=== PATIENT | female | born 1990 | race Caucasian/White ===

== ENCOUNTER 2016-10-28 12:55 | Emergency (ER) | payer OTHER ==
[2016-10-28 13:04] VITALS: BP 113/74; PULSE 86; TEMP 99; BMI 25.2
[2016-10-28] MEDS ORDERED: ALBUTEROL SO4 0.083% IH SOL 2.5 MG/3 ML VIAL.NEB. NEB ONE ×3 (14:37→15:36)
[2016-10-28] MEDS ORDERED: predniSONE 20 MG TABLET (UD) PO ONE (15:35)
[2016-10-28] MEDS ORDERED: predniSONE 20 MG TABLET (UD) ONE (15:36)
[2016-10-28] MEDS ORDERED: DEXAMETHASONE SOD PHOSPHATE 10 MG/1 ML VIAL ONE (15:43)
--- NOTE | 2016-10-28 15:59 | PDOC ---
History of Present Illness - General Chief Complaint: Cold Symptoms Stated Complaint: COUGH, FEVER Time Seen by Provider: 10/28/16 14:23 History Source: Patient Exam Limitations: No Limitations - History of Present Illness Initial Comments: 10/28/16 15:55 CC coughing x 6 weeks; finished z aamir; with wheezing now Timing/Duration: reports: just prior to arrival Severity: reports: mild Possible Cause: No: illness exposure Modifying Factors: worse with: albuterol inhaler Associated Symptoms: reports: cough, wheezing. denies: fever/chills, shortness of breath, sore throat Past History - Past Medical History Allergies/Adverse Reactions: Allergies Allergy/AdvReac Type Severity Reaction Status Date / Time No Known Drug Allergies Allergy Verified 10/28/16 13:04 Home Medications: Ambulatory Orders NK [No Known Home Medication] 10/28/16 Other medical history: NONE - Psycho/Social/Smoking Cessation Hx Anxiety: No Suicidal Ideation: No Smoking Status: No Smoking History: Never smoked Number of Cigarettes Smoked Daily: 0 Hx Alcohol Use: Yes (SOCIAL) Drug/Substance Use Hx: No Substance Use Type: None Hx Substance Use Treatment: No Review of Systems - Review of Systems Constitutional: Yes: Malaise. No: Chills, Fever HEENTM: Yes: Nose Pain, Nose Congestion, Throat Swelling Respiratory: Yes: Cough, Wheezing Cardiac (ROS): No: Symptoms Reported ABD/GI: No: Symptoms Reported *Physical Exam - Vital Signs Last Vital Signs Temp Pulse Resp BP Pulse Ox 99.0 F 86 20 113/74 97 10/28/16 13:01 10/28/16 13:01 10/28/16 13:01 10/28/16 13:01 10/28/16 13:01 - Physical Exam General Appearance: Yes: Appropriately Dressed. No: Apparent Distress HEENT: positive: TMs Normal, Pharynx Normal, Nasal Congestion, Rhinorrhea, Sinus Tenderness Neck: positive: Lymphadenopathy (R), Lymphadenopathy (L). negative: Tender, Rigid Respiratory/Chest: positive: Wheezing. negative: Chest Tender Cardiovascular: positive: Regular Rhythm, Regular Rate. negative: Murmur ED Treatment Course - ADDITIONAL ORDERS Additional order review: Laboratory Results 10/28/16 14:36 Urine HCG, Qual Negative - RADIOLOGY Radiology Studies Ordered: Category Date Time Status CHEST PA & LAT [RAD] Stat Radiology 10/28/16 14:37 Completed - Medications Given in the ED: ED Medications Discontinued Medications Generic Name Dose Route Start Last Admin Trade Name Joselyn PRN Reason Stop Dose Admin Albuterol Sulfate 1 amp 10/28/16 14:37 10/28/16 14:43 Ventolin 0.083% Nebulizer Soln - NEB 10/28/16 14:38 1 amp ONCE ONE Administration Prednisone 40 mg 10/28/16 15:35 10/28/16 15:39 Deltasone - PO 10/28/16 15:36 40 mg ONCE ONE Administration Medical Decision Making - Medical Decision Making 10/28/16 15:57 chest xray= negative; feeling much better post prednisone and albuterol x 2; *DC/Admit/Observation/Transfer Diagnosis at time of Disposition: Bronchitis with bronchospasm - Discharge Dispostion Disposition: HOME Condition at time of disposition: Stable Admit: No - Patient Instructions Additional Instructions: albuterol 2 puffs 4 times daily x 3 days; return for increased symptoms - Post Discharge Activity Work/School Note: Back to Work
== END 2016-10-28 16:03 | disposition home or self-care (01) ==
LOC: JERFT 12:55
PROC: 3E0F7GC Introduction of Other Therapeutic Substance into Respiratory Tract, Via Natural or Artificial Opening (ICD-10-PCS; principal; 2016-10-28)
DX: J20.9 Acute bronchitis, unspecified (principal); J98.01 Acute bronchospasm
CPT/HCPCS: 71020-TC; 84703; 99281-25

== ENCOUNTER 2018-07-12 14:19 | Emergency (ER) | payer OTHER ==
[2018-07-12 14:27] VITALS: BP 123/94; PULSE 87; TEMP 98.8; BMI 25.0
--- NOTE | 2018-07-12 14:31 | PDOC ---
Rapid Medical Evaluation Chief Complaint: Headache Time Seen by Provider: 07/12/18 14:26 Medical Evaluation: Allergies Allergy/AdvReac Type Severity Reaction Status Date / Time No Known Drug Allergies Allergy Verified 07/12/18 14:25 Vital Signs Temp Pulse Resp BP Pulse Ox 98.8 F 87 18 123/94 96 07/12/18 14:25 07/12/18 14:25 07/12/18 14:25 07/12/18 14:25 07/12/18 14:25 07/12/18 14:30 The patient presents with a chief complaint of: headache I have performed a brief in-person evaluation of this patient. Pertinent physical exam findings: vss, I have ordered the following: The patient will proceed to the ED for further evaluation.
--- NOTE | 2018-07-12 14:46 | PDOC ---
History of Present Illness - General Chief Complaint: Headache Stated Complaint: MIGRAINE 5 DAYS Time Seen by Provider: 07/12/18 14:26 - History of Present Illness Initial Comments: 28-year-old female without comorbidities presents for evaluation of headache 5 days. She states she normally does not get headaches. She states her headaches are worse in the morning and sometimes positional. They are associated with a pressure in the back of her head wrapping around my command and sensitivity to light. 07/12/18 14:44 Past History - Past Medical History Allergies/Adverse Reactions: Allergies Allergy/AdvReac Type Severity Reaction Status Date / Time No Known Drug Allergies Allergy Verified 07/12/18 14:25 Home Medications: Ambulatory Orders Ibuprofen [Motrin -] 600 mg PO TID #30 tablet 07/12/18 COPD: No - Immunization History Immunization Up to Date: Yes - Suicide/Smoking/Psychosocial Hx Smoking Status: No Smoking History: Never smoked Number of Cigarettes Smoked Daily: 0 Hx Alcohol Use: Yes (SOCIAL) Drug/Substance Use Hx: No Substance Use Type: None Hx Substance Use Treatment: No Review of Systems - Review of Systems Neurological: Yes: See HPI, Headache All Other Systems: Reviewed and Negative *Physical Exam - Vital Signs Last Vital Signs Temp Pulse Resp BP Pulse Ox 98.8 F 87 18 123/94 96 07/12/18 14:25 07/12/18 14:25 07/12/18 14:25 07/12/18 14:25 07/12/18 14:25 - Physical Exam Comments: HEAD: NC/AT EYES: Conjuntiva clear, PERRL, EOMI Ears: Canals and TM's normal NOSE: No d/c THROAT: Moist mucous membrances, oral pharanx clear, uvula midline NECK: Supple without adenopathy CARDIAC: S1 S2 LUNGS: CTA Full and Equal breath sounds ABDOMEN: Soft NT ND MS: Full ROM in all joints without edema NEUROLOGIC: No gross sensory or motor deficits, NVID SKIN: Normal color and temperature no lesions or rashes 07/12/18 14:45 07/12/18 14:45 Medical Decision Making - Medical Decision Making 07/12/18 14:45 New onset morning headaches exacerbated with position pending, I will get CT scan and treat headache after UCG is result 07/12/18 16:26 CAT scan reviewed, medications given. Patient's headache is relieved. Prescription for [facility]y follow-up advised *DC/Admit/Observation/Transfer Diagnosis at time of Disposition: Headache - Discharge Dispostion Disposition: HOME Condition at time of disposition: Stable Decision to Admit order: No - Referrals Referrals: Chi Koroma MD [Staff Physician] - - Patient Instructions Printed Discharge Instructions: DI for Headache Additional Instructions: Return to the emergency room should symptoms worsen or go unresolved. I given you a name and number for neurologist please follow-up in one to 2 days for further evaluation and treatment options. I given you a prescription for Motrin its one tablet 3 times a day when needed please take the medication with food and discontinue it if it bothers her stomach. - Post Discharge Activity
[2018-07-12] MEDS ORDERED: SODIUM CHLORIDE 0.9% 500 ML INFUS.BAG IV ONE (15:24)
[2018-07-12] MEDS ORDERED: KETOROLAC TROMETHAMINE 15 MG/ML VIAL IVPUSH ONE (15:24)
[2018-07-12] MEDS ORDERED: ONDANSETRON *ODT* 4 MG TABLET ONE (15:36)
[2018-07-12] MEDS ORDERED: ONDANSETRON *ODT* 4 MG TABLET SL ONE (15:36)
[2018-07-12] MEDS ORDERED: KETOROLAC TROMETHAMINE 15 MG/ML VIAL ONE (15:39)
[2018-07-12] MEDS ORDERED: METOCLOPRAMIDE HCL INJECTION 10 MG/2 ML VIAL ONE (15:39)
[2018-07-12] MEDS: METOCLOPRAMIDE HCL INJECTION 10 MG/2 ML VIAL IVPUSH ONE ×2 (15:40→15:46)
== END 2018-07-12 16:47 | disposition home or self-care (01) ==
LOC: JERFT 14:19
DX: R51 Headache (principal)
CPT/HCPCS: 70450-TC; 84703; 99281-25; Q0162

== ENCOUNTER 2019-10-23 12:31 | Emergency (ER) | payer OTHER ==
[2019-10-23 12:46] VITALS: BP 124/75; PULSE 83; TEMP 97.9; BMI 23.4
--- NOTE | 2019-10-23 12:48 | PDOC ---
Rapid Medical Evaluation Time Seen by Provider: 10/23/19 12:42 Medical Evaluation: Allergies Allergy/AdvReac Type Severity Reaction Status Date / Time No Known Drug Allergies Allergy Verified 07/12/18 14:25 10/23/19 12:42 I performed a brief in-person evaluation of this patient. Healthy, non-smoker presenting with 4 days of left calf pain/intermittent numbness. Does not use OCP. No recent trauma/travel/surgery. No chest pain or SOB. Reports stretching for the first time in a long time prior to onset of symptoms. Pertinent physical exam findings: RRR, S1/S2. Clear lungs. Very mild tenderness to deep palpation left mid-calf medially. Negative Homans' sign. V/s unremarkable. I have ordered the following: None. Patient to proceed to FT for further evaluation. Discharge Disposition - Diagnosis Pain of left calf - Referrals - Patient Instructions - Post Discharge Activity
--- NOTE | 2019-10-23 13:47 | PDOC ---
History of Present Illness - General Chief Complaint: Pain, Acute Stated Complaint: LT LEG CALVE PAIN Time Seen by Provider: 10/23/19 12:42 - History of Present Illness Initial Comments: 10/23/19 13:43 29-year-old female without comorbidities presents for evaluation of left lower leg numbness x4 days no systemic symptoms Past History - Past Medical History Allergies/Adverse Reactions: Allergies Allergy/AdvReac Type Severity Reaction Status Date / Time No Known Drug Allergies Allergy Verified 10/23/19 12:42 Home Medications: Ambulatory Orders NK [No Known Home Medication] 10/23/19 COPD: No - Immunization History Immunization Up to Date: Yes - Psycho Social/Smoking Cessation Hx Smoking Status: No Smoking History: Never smoked Number of Cigarettes Smoked Daily: 0 Hx Alcohol Use: No Drug/Substance Use Hx: No Substance Use Type: None Hx Substance Use Treatment: No Review of Systems - Review of Systems Neurological: Yes: See HPI, Numbness *Physical Exam - Vital Signs Last Vital Signs Temp Pulse Resp BP Pulse Ox 97.9 F 83 18 124/75 100 10/23/19 12:43 10/23/19 12:43 10/23/19 12:43 10/23/19 12:43 10/23/19 12:43 - Physical Exam 10/23/19 13:44 Left lower extremity skin color and temperature normal. Range of motion is full in the hip knee ankle and toes without discomfort. Thigh and calf are soft and nontender. Calf is floppy. Mild decrease sensation about the medial aspect of the left lower leg negative Tinel sign at the peroneal nerve. 5 out of 5 strength in all planes plantar and dorsi flexion inversion and eversion knee flexion and extension. Lumbar spine skin color and temperature normal range of motion is full and nonpainful no tenderness or spasm 10/23/19 13:45 Medical Decision Making - Medical Decision Making 10/23/19 13:45 No gross deficits on examination in regards to her motor exam. Follow-up with neurology. Discharge - Discharge Information Problems reviewed: Yes Clinical Impression/Diagnosis: Numbness and tingling of left leg Clinical Impression/Diagnosis: (Ruled Out): Pain of left calf Condition: Stable Disposition: HOME - Admission No - Follow up/Referral Referrals: Boni Carmen MD [Primary Care Provider] - Salomon Walsh MD [Staff Physician] - - Patient Discharge Instructions Additional Instructions: Return to the emergency room for any changes or worsening of symptoms. Otherwise follow-up with neurology in 1 to 2 days for further evaluation and treatment options. Follow-up with neurology without fail. - Post Discharge Activity
== END 2019-10-23 14:02 | disposition home or self-care (01) ==
LOC: JERFT 12:31
DX: R20.2 Paresthesia of skin (principal)
CPT/HCPCS: 99282-25

== ENCOUNTER 2023-10-09 09:30 | Emergency (ER) | payer OTHER ==
[2023-10-09 09:50] VITALS: RESP 18; BMI 25.9
[2023-10-09] MEDS ORDERED: FAMOTIDINE 20 MG/50 ML IVPB 20 MG/50 ML MG IVPB ONE ×2 (11:05→11:20)
[2023-10-09] MEDS ORDERED: SODIUM CHLORIDE 0.9% 500 ML INFUS.BAG IV ONE (11:08)
[2023-10-09 11:55] LABS: HCG,QUALITATIVE URINE Positive
[2023-10-09 11:56] LABS: BASO % 0.5 % (0-2.0); EOS % 1.5 % (0-4.5); HEMATOCRIT 38.9 % (32.4-45.2); HEMOGLOBIN 13.1 GM/dL (10.7-15.3); LYMPH % 10.5 % (8-40); MCH 31.1 pg (25.7-33.7); MCHC 33.6 g/dl (32.0-36.0); MEAN CELL VOLUME 92.5 fl (80-96); MEAN PLT VOLUME 7.7 fl (7.5-11.1); MONO % 7.2 % (3.8-10.2); NEUT % 80.3 % (42.8-82.8); PLATELET COUNT 487 10^3/uL (134-434); RDW 13.4 % (11.6-15.6)
[2023-10-09 11:57] LABS: URINE APPEARANCE CLEAR; URINE BILIRUBIN NEGATIVE (NEGATIVE); URINE COLOR YELLOW; URINE GLUCOSE (UA) NEGATIVE (NEGATIVE); URINE KETONE NEGATIVE (NEGATIVE); URINE LEUK ESTERASE NEGATIVE (NEGATIVE); URINE NITRITE NEGATIVE (NEGATIVE); URINE PROTEIN NEGATIVE (NEGATIVE)
[2023-10-09 12:16] LABS: POTASSIUM 4.3 mmol/L (3.5-5.1)
[2023-10-09 12:17] LABS: CALCIUM 9.1 mg/dL (8.5-10.1)
[2023-10-09 12:18] LABS: ALBUMIN 3.4 g/dl (3.4-5.0); BLOOD UREA NITROGEN 15.2 mg/dL (7-18)
[2023-10-09 12:22] LABS: CREATININE 0.5 mg/dL (0.55-1.3)
[2023-10-09 12:23] LABS: BILIRUBIN,TOTAL 0.4 mg/dL (0.2-1)
[2023-10-09 12:58] VITALS: BP 110/67; PULSE 74; TEMP 98.8
== END 2023-10-09 17:57 | disposition home or self-care (01) ==
LOC: JER 09:30
PROC: 3E033GC Introduction of Other Therapeutic Substance into Peripheral Vein, Percutaneous Approach (ICD-10-PCS; principal; 2023-10-09)
DX: O26.891 Other specified pregnancy related conditions, first trimester (principal); R10.12 Left upper quadrant pain; O99.611 Diseases of the digestive system complicating pregnancy, first trimester; K21.9 Gastro-esophageal reflux disease without esophagitis; R35.0 Frequency of micturition; R09.81 Nasal congestion; O99.511 Diseases of the respiratory system complicating pregnancy, first trimester; J34.89 Other specified disorders of nose and nasal sinuses; R10.30 Lower abdominal pain, unspecified; Z20.822 Contact with and (suspected) exposure to COVID-19; Z3A.10 10 weeks gestation of pregnancy
CPT/HCPCS: 0241U-QW; 36415; 76705-TC; 76801-TC; 80053; 81003; 83690; 84702; 84703; 85025; 86850; 86900; 86901; 87086; 99284-25